=== PATIENT | female | born 1990 | race Caucasian/White ===

== ENCOUNTER 2021-07-14 12:08 | Emergency (ER) | payer BC ==
[~2021-07-14] VITALS: Ht 177.8 cm; Wt 150.0 kg
[~2021-07-14 12:08] MED LIST: LIDOcaine 1% W/epiNEPHrine 1:100,000 20ml vial ONE
[2021-07-14 12:27] VITALS: BP 129/84
[2021-07-14] MEDS ORDERED: bacitracin 15gm ointment TP ONE (13:15)
[2021-07-14] MEDS ORDERED: ondansetron 4mg rapidly disintigrating tab PO ONE (13:15)
[2021-07-14] MEDS ORDERED: amox tr/potassium clavulanate 875/125mg TAB PO ONE (13:15)
[2021-07-14] MEDS ORDERED: AMOX-115 PO (13:17)
== END 2021-07-14 14:19 | disposition home or self-care (01) ==
LOC: ER 12:09
DX: S61.511A Laceration without foreign body of right wrist, initial encounter (principal); W54.0XXA Bitten by dog, initial encounter; Y93.89 Activity, other specified; Y92.89 Other specified places as the place of occurrence of the external cause; Y99.8 Other external cause status
CPT/HCPCS: 12001; 99283; J3490

== ENCOUNTER 2022-12-01 17:36 | Emergency (ER) | payer BC, MEDICAID ==
[~2022-12-01] VITALS: Ht 175.3 cm; Wt 136.0 kg
[2022-12-01 17:47] VITALS: BP 153/89
[2022-12-01] MEDS ORDERED: LIDOcaine 5% patch TP STA (19:05)
[2022-12-01] MEDS ORDERED: ketorolac trometh inj. 60 MG/2 ML VIAL IM ONE (19:05)
[2022-12-01] MEDS ORDERED: LIDO-15 TOP (19:09)
[2022-12-01] MEDS ORDERED: IBUP-1986 PO (19:09)
== END 2022-12-01 19:34 | disposition home or self-care (01) ==
LOC: ER 17:38
DX: R07.81 Pleurodynia (principal); F17.200 Nicotine dependence, unspecified, uncomplicated; Z88.8 Allergy status to other drugs, medicaments and biological substances
CPT/HCPCS: 96372; 99283; J1885

== ENCOUNTER 2023-11-28 11:37 | Outpatient (CLI) | payer MEDICAID ==
[~2023-11-28 11:37] MED LIST changes: +IBUP-1986 PO; +LIDO-15 TOP; -LIDOcaine 1% W/epiNEPHrine 1:100,000 20ml vial ONE
== END 2023-11-28 23:59 | disposition home or self-care (01) ==
LOC: RAD 11:37
PROVIDERS: ATTEND Nurse Practitioner Family
DX: M16.11 Unilateral primary osteoarthritis, right hip (principal); M25.851 Other specified joint disorders, right hip; M25.751 Osteophyte, right hip
CPT/HCPCS: 73700

== ENCOUNTER 2023-12-01 09:07 | Outpatient (CLI) | payer MEDICAID | END 2023-12-01 23:59 | disposition home or self-care (01) | LOC: RAD 09:07 | PROVIDERS: ATTEND Student in an Organized Health Care Education/Training Program | DX: N20.2 Calculus of kidney with calculus of ureter (principal); N28.89 Other specified disorders of kidney and ureter | CPT/HCPCS: 76770 ==